=== PATIENT | female | born 1995 | race Caucasian/White ===

== ENCOUNTER 2018-11-07 20:19 | Emergency (ER) | payer OTHER ==
[~2018-11-07] VITALS: Ht 162.6 cm; Wt 89.4 kg
[~2018-11-07 20:19] MED LIST: KEFLEX500 MG PO
[2018-11-07] MEDS ORDERED: PRENATABS FA T1 EACH (20:40)
== END 2018-11-08 00:15 | disposition home or self-care (01) ==
LOC: ER 20:19
DX: K52.9 Noninfective gastroenteritis and colitis, unspecified (principal)

== ENCOUNTER → 2019-02-09 | Outpatient (CLI) | payer OTHER ==
[~2019-02-09] MED LIST changes: +PRENATABS FA T1 EACH
== END | disposition home or self-care (01) ==
LOC: PRENATAL 14:00
DX: O35.3XX1 Maternal care for (suspected) damage to fetus from viral disease in mother, fetus 1 (principal); O99.212 Obesity complicating pregnancy, second trimester

== ENCOUNTER 2019-05-25 15:46 | Outpatient (CLI) | payer OTHER | END 2019-05-26 10:39 | disposition left against medical advice (07) | LOC: OBS/DEL 15:46 | DX: O26.843 Uterine size-date discrepancy, third trimester (principal); O26.893 Other specified pregnancy related conditions, third trimester; R10.2 Pelvic and perineal pain; O99.213 Obesity complicating pregnancy, third trimester; O36.8131 Decreased fetal movements, third trimester, fetus 1 ==

== ENCOUNTER 2019-06-23 06:22 | Inpatient (IN) | payer OTHER ==
[~2019-06-23] VITALS: Ht 162.6 cm; Wt 101.6 kg
== END 2019-06-25 14:40 | disposition home or self-care (01) | DRG 807 ==
LOC: LDR 06:22 → OB/GYN 13:13
PROVIDERS: ADMIT Obstetrics & Gynecology
PROC: 10E0XZZ Delivery of Products of Conception, External Approach (ICD-10-PCS; principal; 2019-06-23)
PROC: 4A1HXFZ Monitoring of Products of Conception, Cardiac Rhythm, External Approach (ICD-10-PCS; 2019-06-23)
PROC: 0HQ9XZZ Repair Perineum Skin, External Approach (ICD-10-PCS; 2019-06-23)
PROC: 3E033VJ Introduction of Other Hormone into Peripheral Vein, Percutaneous Approach (ICD-10-PCS; 2019-06-23)
DX: O69.81X0 Labor and delivery complicated by cord around neck, without compression, not applicable or unspecified (principal); Z37.0 Single live birth; O90.81 Anemia of the puerperium; D64.9 Anemia, unspecified; O70.0 First degree perineal laceration during delivery; Z3A.40 40 weeks gestation of pregnancy